=== PATIENT | female | born 1950 | race Caucasian/White ===

== ENCOUNTER 2018-02-19 08:42 | Emergency (ER) | payer MEDICARE, MEDICAID ==
[2018-02-19 09:07] VITALS: BP 137/71
--- NOTE | 2018-02-19 09:40 | UC ---
Respiratory Complaint HPI - HPI Summary HPI Summary: The patient is a 67-year-old female with a two-week history of progressively worsening cough wheezing and congestion. She has been using her inhalers more frequently than prescribed. She has had no relief with [id number] remedies. She has no chest pain. She has no myalgias. - History of Current Complaint Chief Complaint: UCRespiratory Stated Complaint: COUGH,CONGESTION Time Seen by Provider: 02/19/18 09:33 Hx Obtained From: Patient Onset/Duration: Gradual Onset, Lasting Weeks Timing: Constant Severity Initially: Mild Severity Currently: Moderate Pain Intensity: 0 Pain Scale Used: 0-10 Numeric Character: Cough: Productive Aggravating Factors: Exertion, Deep Breaths, Recumbent Position Alleviating Factors: Bronchodilator Associated Signs And Symptoms: Positive: Wheezing, Nasal Congestion - Allergies/Home Medications Allergies/Adverse Reactions: Allergies Allergy/AdvReac Type Severity Reaction Status Date / Time No Known Allergies Allergy Verified 02/19/18 08:59 Home Medications: Home Medications ALPRAZolam TAB* [Xanax TAB*] 0.5 mg PO TID PRN 02/19/18 [History Confirmed 02/19] Albuterol HFA INHALER* [Ventolin HFA Inhaler*] 1 - 2 puff INH Q4H PRN 02/19/18 [ History Confirmed 02/19/18] Atorvastatin* [Lipitor*] 20 mg PO DAILY 02/19/18 [History Confirmed 02/19/18] Azelastine HCl [Azelastine Hydrochloride] 0.1 % NA DAILY 02/19/18 [History Confirmed 02/19/18] Budesonide/Formote 160/4.5(NF) [Symbicort 160/4.5 (NF)] 2 puff INH BID 02/19/18 [History Confirmed 02/19/18] Calcium Carbonate/Vitamin D3 [Calcium 600 + Vit D Tablet] 1 each PO DAILY [History Confirmed 02/19/18] Carvedilol TAB* [Coreg TAB*] 12.5 mg PO BID 02/19/18 [History Confirmed 02/19/18 ] Citalopram TAB* [CeleXA TAB*] 20 mg PO DAILY 02/19/18 [History Confirmed ] Dextromethorphan Polistirex [Delsym] 30 mg PO BID PRN 02/19/18 [History Confirmed 02/19/18] Fluticasone NASAL SPRAY 50MCG* [Flonase NASAL SPRAY 50MCG*] 2 spray BOTH NARES DAILY 02/19/18 [History Confirmed 02/19/18] Hydrochlorothiazide TAB* [Hydrodiuril TAB*] 25 mg PO DAILY 02/19/18 [History Confirmed 02/19/18] Metoprolol Succinate [Toprol Xl] 25 mg PO DAILY 02/19/18 [History Confirmed ] Mometasone NASAL (NF) [Nasonex (NF)] 50 mcg NA DAILY 02/19/18 [History Confirmed 02/19/18] Omeprazole CAP* [Prilosec CAP* 20 MG] 20 mg PO DAILY 02/19/18 [History Confirmed 02/19/18] Potassium Chlor TAB* [Klor Con ER TAB*] 20 meq PO DAILY 02/19/18 [History Confirmed 02/19/18] Ramipril CAP* [Altace CAP*] 10 mg PO DAILY 02/19/18 [History Confirmed 02/19/18] Venlafaxine TAB (NF) [Effexor TAB (NF)] 75 mg PO DAILY 02/19/18 [History Confirmed 02/19/18] guaiFENesin ER TAB [Mucinex*] 600 mg PO BID 02/19/18 [History Confirmed 02/19/18 ] PMH/Surg Hx/FS Hx/Imm Hx Endocrine History: Dyslipidemia Cardiovascular History: Hypertension Respiratory History: COPD, Asthma, Bronchitis GI/ History: Gastroesophageal Reflux - Surgical History Surgical History: Yes Surgery Procedure, Year, and Place: gastric bypass. hysterectomy - Family History Known Family History: Positive: Hypertension - Social History Alcohol Use: None Substance Use Type: None Smoking Status (MU): Never Smoked Tobacco Review of Systems All Other Systems Reviewed And Are Negative: Yes Constitutional: Positive: Fatigue Skin: Positive: Negative Eyes: Positive: Negative ENT: Positive: Nasal Discharge, Sinus Congestion Respiratory: Positive: Cough Cardiovascular: Positive: Negative Gastrointestinal: Positive: Negative Genitourinary: Positive: Negative Motor: Positive: Negative Neurovascular: Positive: Negative Musculoskeletal: Positive: Negative Neurological: Positive: Negative Psychological: Positive: Negative Physical Exam Triage Information Reviewed: Yes Appearance: Well-Appearing, No Pain Distress, Well-Nourished Vital Signs: Initial Vital Signs Temp 97.3 F 02/19/18 09:03 Pulse 83 02/19/18 09:03 Resp 16 02/19/18 09:03 BP 137/71 02/19/18 09:03 Pulse Ox 98 02/19/18 09:03 Vital Signs Reviewed: Yes Eyes: Positive: Conjunctiva Clear ENT: Positive: Hearing grossly normal, Uvula midline. Negative: Nasal congestion, Nasal drainage, Muffled voice, Hoarse voice, Sinus tenderness Neck: Positive: Supple, Nontender, No Lymphadenopathy Respiratory: Positive: No respiratory distress, No accessory muscle use, Respiratory distress, Other: - bronchospastic cough/wheezing with forced expiration Cardiovascular: Positive: RRR, No Murmur Musculoskeletal: Positive: ROM Intact, No Edema Neurological: Positive: Alert Psychological Exam: Normal Skin Exam: Normal UC Diagnostic Evaluation - Laboratory O2 Sat by Pulse Oximetry: 98 - normal/not hyposic Respiratory Course/Dx - Differential Dx/Diagnosis Provider Diagnoses: acute bronchitis Discharge - Sign-Out/Discharge Documenting (check all that apply): Patient Departure All imaging exams completed and their final reports reviewed: No Studies - Discharge Plan Condition: Stable Disposition: HOME Prescriptions: Albuterol 2.5MG/3ML (0.083%)* [Ventolin 2.5 MG/3 ML NEB.KINDRA*] 2.5 mg INH QID PRN #1 neb.kindra PRN Reason: Wheezing Amoxicillin PO (*) [Amoxicillin 875 MG (*)] 875 mg PO BID #20 tab predniSONE [Deltasone 20 MG TAB] 40 mg PO DAILY #10 tab Patient Education Materials: Acute Bronchitis (ED) Referrals: Fransisco Helms MD [Primary Care Provider] - 5 Days (if not better) - Billing Disposition and Condition Condition: STABLE Disposition: Home
== END 2018-02-19 09:53 | disposition home or self-care (01) ==
LOC: UCCORT 08:42
DX: J20.9 Acute bronchitis, unspecified (principal); J45.909 Unspecified asthma, uncomplicated; J44.9 Chronic obstructive pulmonary disease, unspecified; K21.9 Gastro-esophageal reflux disease without esophagitis; I10 Essential (primary) hypertension; E78.5 Hyperlipidemia, unspecified; Z79.899 Other long term (current) drug therapy; Z98.84 Bariatric surgery status
CPT/HCPCS: 99202; G0463